=== PATIENT | male | born 1975 | race Caucasian/White ===

== ENCOUNTER → 2018-05-09 | Day surgery (SDC) | payer OTHER ==
[~2018-05-09] MED LIST: ACYC400T PO; CHOL10003 PO; CYAN10005 PO; DABR75CA PO; ESOM20CA PO; HEPARIN PF 500 UNIT/5 ML DISP.SYRIN. IV ONE; IV RINGERS,LACTATED 1000ML 1,000 ML IV SCH; PROPOFOL 40 ML IV ONE; TURM538C PO
[2018-05-09 07:41] VITALS: BP 110/59
--- NOTE | 2018-05-10 14:10 | PATHOLOGY ---
[facility] Accession Number: [id number] . 01 Material submitted: . DISTAL ESOPHAGUS BIOPSY . 01 Clinical history: . Dysphagia . 02 Diagnosis: Esophageal biopsies, distal esophagus: - Segments of hyperplastic squamous esophageal mucosa consistent with reflux esophagitis. . (JPM:vjm;05/10/2018) AGA/05/10/2018 . 02 Comment: Sections of the distal esophageal biopsy reveal segments of tangentially oriented hyperplastic squamous esophageal mucosa. The findings are consistent with reflux esophagitis. There is no evidence of Cummings's change, dysplasia or malignancy. . (JPM:vjm;05/10/2018) . 02 Electronically signed: . Taras Herrera MD, Pathologist NPI- [id number] . 01 Gross description: . Received in formalin labeled "Foster Gatica, distal esophagus BX," are 4 segments of benavides soft tissue measuring 0.9 x 0.6 x 0.2 cm in aggregate dimensions and ranging from 0.4 to 0.6 cm in maximum dimension. The specimen is submitted entirely in cassette A1. (TSD; 05/09/2018) TOB/TOB . 02 Pathologist provided ICD-10: K21.0 . 02 CPT . 467408 Specimen Comment: A courtesy copy of this report has been sent to Specimen Comment: [phone], . Specimen Comment: Report sent to / DR TOVAR Specimen Comment: A duplicate report has been generated due to demographic updates. Performed at: 01 [facility] [address], [place], [place] [id number] MD Earnest Andrew MD Phone: [phone] Performed at: 02 [facility] [address], [place] [id number] MD Taras Herrera MD Phone: [phone]
== END | disposition home or self-care (01) ==
LOC: SURG 06:03
PROVIDERS: ATTEND Internal Medicine Gastroenterology
DX: K22.2 Esophageal obstruction (principal); K21.0 Gastro-esophageal reflux disease with esophagitis; Z72.89 Other problems related to lifestyle; Z98.890 Other specified postprocedural states; Z79.899 Other long term (current) drug therapy; Z83.79 Family history of other diseases of the digestive system
CPT/HCPCS: 43239; 43450; 88305; J2704